=== PATIENT | female | born 1940 | race Caucasian/White ===

== ENCOUNTER → 2016-03-05 | Outpatient (CLI) | payer MEDICARE, OTHER ==
[~2016-03-05] MED LIST: ACIDOPHILUS PO; ALBUTEROL0.83 MG/ML IH; ASPIRIN 81M81 MG/TA2 PO; ATARAX 25MG25 MG/TAB PO; ATENOLOL25 MG PO; ATROVENT I0.2 MG/1 M IH; B COMPLEX1 TA2 PO; BUMEX 1MG TA1 MG/TA1 PO; BUMEX2 MG PO; CAL-600600 MG PO; CAL-MAG1 TAB PO; CALAN40 MG PO; CALCIUM & MAGNE1 CAP PO; CARDI-OMEGA1000 MG PO; CEPHALEXIN500 M1 PO; CLARITIN 1010 MG/TAB PO; CORDARONE200 MG/TAB PO; CYMBALTA 60MG60 MG PO; DESYREL 100MG100 MG PO; DESYREL 50MG50 MG; DESYREL 50MG50 MG PO; DETROL LA2 PO; DETROL LA4 PO; DOXYCYCLINE 10100 MG PO; ELAVIL50 MG PO; ESTRACE 1MG1 MG/TAB PO; ESTRIDIAL PO; FLONASE NASAL S16 GM NS; GABAPENTIN; HYDROCORTISO28.35 G1 TP; IBU600 MG PO; IMDUR 30MG30 MG/TAB PO; IMDUR 60MG60 MG/TAB PO; IMITREX50 MG PO; IPRATROPIUM BROM3 M1 IH; ISORDIL TITRADO30 MG PO; K-DUR 2020 MEQ PO; LASIX 40MG TABL40 MG PO; LASIX 80MG TABL80 MG PO; LEVAQUIN 5500 MG/TA1 PO; LEVOTHYROXINE0.1 MG PO; LEVOXYL0.112 MG PO; LEVOXYL0.125 MG PO; LIPITOR20 MG PO; LYRICA 100MG C100 M1 PO; LYRICA 150MG C150 MG PO; LYRICA 25MG CAP25 MG PO; LYRICA 75MG CAP75 MG PO; LYRICA100 MG PO; MAG-OX 400400 MG/TAB PO; MONODOX100 PO; MULTIPLE VITAMI PO; MULTIPLE VITAMI1 CAP PO; MULTIVITAMIN W/1 TA1 PO; MYRBETR25MG PO; MYRBETR50MG PO; NASONEX SPRAY17 GM NS; NATURAL E400 IU PO; NATURAL TEARS OU; NATURE'S B5000 IU/ML PO; NITROQUICK0.4 MG SL; NITROSTAT0.4 MG/TAB SL; NORCO 325 MG-51 TAB PO; NORVASC 5MG5 MG/TAB PO; PACERONE200 MG PO; PLAQUENIL 200M200 MG PO; PLAVIX 75MG TAB75 MG PO; PRADAXA 150MG150 MG PO; PRAVACHOL 20MG20 MG PO; PREDNISONE20 MG PO; PRINIVIL10 MG PO; PRINIVIL20 MG PO; PROAIR HFA0.09 MG/AC IH; PROBIOTIC FORMU1 CAP PO; PROVENTIL0.09 MG/A1 INH; SEPTRA DS 8001 TAB PO; SSKI1 GM/ML PO; SYNTHROID0.1 MG/TAB PO; TENORMIN 5050 MG/TAB PO; TETRACYCLINE500 MG; THERAGRAN1 TAB PO; THERATEARS 15 M15 ML OP; TOPROL XL 25MG25 MG PO; TOPROL XL 50MG50 MG PO; TYLENOL W/COD1 UDTAB PO; ULTRAM 50MG TAB50 MG PO; VANCOCIN H125 MG/CAP PO; VERAPAMIL 440 MG/TAB PO; VERELAN240 MG PO; VITAMIN B COMPL1 T16 PO; VITAMIN C PUR1000 MG PO; VITAMIN C500 MG PO; VITAMIN D 400400 IU PO; VITAMIN D31000 IU PO; VITAMIN D3400 I1 PO; VITAMIN D3400 IU PO; VITAMINC500CH PO; ZESTRIL 10MG10 MG PO; ZESTRIL 20MG TA20 MG PO; ZOCOR 20MG20 MG PO; ZOFRAN 4MG T4 MG/TAB PO; ZYLOPRIM 300MG300 MG PO; [UNRECOGNIZED DRUG - CODE] PO; [UNRECOGNIZED DRUG - OTHER] PO
== END ==
LOC: COL.RAD 03-04 11:00
DX: M19.012 Primary osteoarthritis, left shoulder (principal); M24.012 Loose body in left shoulder; M25.512 Pain in left shoulder

== ENCOUNTER 2016-12-10 00:51 | Emergency (ER) | payer MEDICARE, OTHER ==
[~2016-12-10] VITALS: Ht 152.4 cm; Wt 96.4 kg
[2016-12-10 00:55] VITALS: TEMP 97.8
[2016-12-10] MEDS ORDERED: OS-CAL 500 + D1 TAB (01:57)
[2016-12-10] MEDS ORDERED: OMEGA-3 1000 MG1 CAP PO (01:59)
[2016-12-10] MEDS ORDERED: MELATIN 3 MG-11 TAB PO (02:00)
[2016-12-10] MEDS ORDERED: CLARITIN 1010 MG/TAB PO (02:00)
[2016-12-10] MEDS ORDERED: CYMBALTA 60MG60 MG PO (02:02)
[2016-12-10 02:23] VITALS: BP 172/70; PULSE 64
== END 2016-12-10 02:23 | disposition home or self-care (01) ==
LOC: COL.ER 00:51
DX: S01.01XA Laceration without foreign body of scalp, initial encounter (principal); I27.20 Pulmonary hypertension, unspecified; J44.9 Chronic obstructive pulmonary disease, unspecified; I48.91 Unspecified atrial fibrillation; I25.10 Atherosclerotic heart disease of native coronary artery without angina pectoris; Z79.82 Long term (current) use of aspirin; W18.39XA Other fall on same level, initial encounter; W22.09XA Striking against other stationary object, initial encounter; Y92.009 Unspecified place in unspecified non-institutional (private) residence as the place of occurrence of the external cause

== ENCOUNTER → 2017-02-23 | Outpatient (REF) ==
[~2017-02-23] MED LIST changes: +ADVIL200 MG PO; +COREG 3.123.125 MG/T PO; +LOTRISONE CREAM15 GM TP; +MELATIN 3 MG-11 TAB PO; +MIRALAX PA17 GM/Dose PO; +OMEGA-3 1000 MG1 CAP PO; +OS-CAL 500 + D1 TAB PO; +ROXICODONE 55 MG/TAB PO; +TYLENOL 325MG325 MG PO; +VENTOLIN0.09 MG IH; +VITAMIND3 5000 PO; +ZOFRAN ODT8 MG PO
[2017-02-23 04:22] LABS: COLLECTION METHOD CLEAN CATCH
[2017-02-23 04:43] LABS: PH 7 (5-8); URINE APPEARANCE Turbid; URINE BACTERIA Rare /hpf; URINE BILIRUBIN Negative (NEGATIVE); URINE BLOOD 1+ (NEGATIVE); URINE COLOR Yellow; URINE GLUCOSE Negative (NEGATIVE); URINE KETONE Negative (NEGATIVE); URINE LEUKOCYTE ESTERASE 3+ (NEGATIVE); URINE NITRATE Negative (NEGATIVE); URINE PROTEIN(semi-quant) 1+ (NEGATIVE); URINE UROBILINOGEN Negative (NEGATIVE); URINE WBC >50 /hpf
== END ==
LOC: ZCOL.LAB 04:20
PROVIDERS: Internal Medicine
DX: Z01.89 Encounter for other specified special examinations (principal)

== ENCOUNTER → 2017-03-14 | Outpatient (REF) | LOC: ZLAB.WCH 12:58 | DX: Z01.89 Encounter for other specified special examinations (principal) ==

== ENCOUNTER → 2017-03-14 | Outpatient (REF) ==
[2017-03-14 13:10] LABS: BASO # 0.1 (0.0-0.2); BASO % 0.7 % (0.0-2.0); EOS # 0.3 (0.0-0.7); EOS % 4.1 % (0-4.0); GRAN # 3.9 (1.4-6.5); GRAN % 56.9 % (42.2-75.2); HEMATOCRIT 37.4 % (37.0-47.0); LYMPH # 1.8 (1.2-3.4); LYMPH % 26.9 % (20.0-51.0); MEAN CELL VOLUME 100 fl (80.0-100.0); MEAN CORPUSCULAR HEMOGLOBIN 32 pg (27.0-31.0); MEAN CORPUSCULAR HGB CONC 32 g/dl (33.0-37.0); MEAN PLATELET VOLUME 11.3 fl (7.4-10.4); MONO # 0.8 (0.1-0.6); PLATELET COUNT 191 K/mm3 (130-400); RED BLOOD COUNT 3.75 M/mm3 (4.10-5.30)
[2017-03-14 13:11] LABS: HEMOGLOBIN 11.9 g/dl (12.5-16.0)
[2017-03-14 13:18] LABS: ALBUMIN 3.8 gm/dL (3.5-5.0); BILIRUBIN,TOTAL 0.5 mg/dL (0.0-1.0); CALCIUM 9.8 mg/dL (8.4-10.2); CREATININE, serum 1.45 mg/dL (0.52-1.25); POTASSIUM 3.8 mmol/L (3.4-5.0); TOTAL PROTEIN 6.1 gm/dL (6.4-8.2)
== END ==
LOC: ZCOL.LAB 13:08
PROVIDERS: Nurse Practitioner Family
DX: N18.3 Chronic kidney disease, stage 3 (moderate) (principal); N39.0 Urinary tract infection, site not specified

== ENCOUNTER → 2017-03-20 | Outpatient (REF) ==
[2017-03-20 10:24] LABS: CREATININE, serum 1.21 mg/dL (0.52-1.25)
== END ==
LOC: ZCOL.LAB 09:53
PROVIDERS: Internal Medicine
DX: Z01.89 Encounter for other specified special examinations (principal)

== ENCOUNTER → 2017-03-23 | Outpatient (REF) ==
[2017-03-23 09:13] LABS: CREATININE, serum 1.2 mg/dL (0.52-1.25); POTASSIUM 3.1 mmol/L (3.4-5.0)
== END ==
LOC: ZCOL.LAB 08:28
PROVIDERS: Internal Medicine
DX: N39.0 Urinary tract infection, site not specified (principal)

== ENCOUNTER → 2017-03-26 | Outpatient (REF) ==
[2017-03-26 11:32] LABS: CALCIUM 10.4 mg/dL (8.4-10.2); CREATININE, serum 1.48 mg/dL (0.52-1.25); POTASSIUM 3.8 mmol/L (3.4-5.0)
== END ==
LOC: ZCOL.LAB 11:07
PROVIDERS: Internal Medicine
DX: N18.3 Chronic kidney disease, stage 3 (moderate) (principal)

== ENCOUNTER → 2017-04-27 | Outpatient (REF) ==
[2017-04-27 12:25] LABS: BASO # 0.1 (0.0-0.2); BASO % 0.6 % (0.0-2.0); EOS # 0.2 (0.0-0.7); EOS % 1.5 % (0-4.0); GRAN # 6.7 (1.4-6.5); GRAN % 65.3 % (42.2-75.2); HEMATOCRIT 40.3 % (37.0-47.0); HEMOGLOBIN 13.1 g/dl (12.5-16.0); LYMPH # 2.4 (1.2-3.4); LYMPH % 22.9 % (20.0-51.0); MEAN CELL VOLUME 97 fl (80.0-100.0); MEAN CORPUSCULAR HEMOGLOBIN 32 pg (27.0-31.0); MEAN CORPUSCULAR HGB CONC 33 g/dl (33.0-37.0); MEAN PLATELET VOLUME 11.3 fl (7.4-10.4); MONO # 0.9 (0.1-0.6); MONO % 8.5 % (1.7-9.3); PLATELET COUNT 200 K/mm3 (130-400); RED BLOOD COUNT 4.14 M/mm3 (4.10-5.30)
[2017-04-27 12:52] LABS: CALCIUM 9.8 mg/dL (8.4-10.2); CREATININE, serum 1.56 mg/dL (0.52-1.25); POTASSIUM 4.7 mmol/L (3.4-5.0)
== END ==
LOC: ZCOL.LAB 12:20
PROVIDERS: Internal Medicine
DX: N18.3 Chronic kidney disease, stage 3 (moderate) (principal); E87.6 Hypokalemia

== ENCOUNTER 2017-06-05 13:56 | Emergency (ER) | payer MEDICARE, OTHER ==
[~2017-06-05] VITALS: Ht 152.4 cm; Wt 90.9 kg
[2017-06-05 16:00] VITALS: BP 119/58; PULSE 68; TEMP 98
== END 2017-06-05 16:12 | disposition home or self-care (01) ==
LOC: COL.ER 13:56
DX: S41.111A Laceration without foreign body of right upper arm, initial encounter (principal); Z23 Encounter for immunization; F32.9 Major depressive disorder, single episode, unspecified; I10 Essential (primary) hypertension; W18.39XA Other fall on same level, initial encounter; W22.8XXA Striking against or struck by other objects, initial encounter; Z79.82 Long term (current) use of aspirin

== ENCOUNTER → 2017-06-11 | Outpatient (CLI) | payer MEDICARE, OTHER ==
[2017-06-11 13:21] LABS: BASO % 0.2 % (0.0-2.0); EOS # 0.1 (0.0-0.7); EOS % 0.7 % (0-4.0); GRAN # 11.6 (1.4-6.5); GRAN % 78.4 % (42.2-75.2); LYMPH # 1.5 (1.2-3.4); LYMPH % 10.3 % (20.0-51.0); MEAN CELL VOLUME 93 fl (80.0-100.0); MEAN CORPUSCULAR HEMOGLOBIN 31 pg (27.0-31.0); MEAN CORPUSCULAR HGB CONC 33 g/dl (33.0-37.0); MEAN PLATELET VOLUME 12.3 fl (7.4-10.4); MONO # 1.4 (0.1-0.6); MONO % 9.3 % (1.7-9.3); PLATELET COUNT 144 K/mm3 (130-400); RED BLOOD COUNT 4.52 M/mm3 (4.10-5.30); REDCELL DISTRIBUTION WIDTH-CV 15.9 % (11.5-14.5)
[2017-06-11 13:54] LABS: BILIRUBIN,TOTAL 0.6 mg/dL (0.0-1.0); CALCIUM 9.7 mg/dL (8.4-10.2); CREATININE, serum 2.12 mg/dL (0.52-1.25); POTASSIUM 3.4 mmol/L (3.4-5.0); TOTAL PROTEIN 5.5 gm/dL (6.4-8.2)
== END ==
LOC: ZCOL.LAB 13:14
PROVIDERS: Internal Medicine
DX: N18.3 Chronic kidney disease, stage 3 (moderate) (principal); N39.0 Urinary tract infection, site not specified; R19.7 Diarrhea, unspecified

== ENCOUNTER → 2017-06-15 | Outpatient (CLI) | payer MEDICARE, OTHER ==
[2017-06-15 15:34] LABS: HEMATOCRIT 41.4 % (37.0-47.0); HEMOGLOBIN 13.7 g/dl (12.5-16.0); MEAN CELL VOLUME 94 fl (80.0-100.0); MEAN CORPUSCULAR HEMOGLOBIN 31 pg (27.0-31.0); MEAN CORPUSCULAR HGB CONC 33 g/dl (33.0-37.0); MEAN PLATELET VOLUME 12.6 fl (7.4-10.4); PLATELET COUNT 118 K/mm3 (130-400); RED BLOOD COUNT 4.42 M/mm3 (4.10-5.30); REDCELL DISTRIBUTION WIDTH-CV 15.9 % (11.5-14.5)
[2017-06-15 15:55] LABS: CALCIUM 9.6 mg/dL (8.4-10.2); CREATININE, serum 1.78 mg/dL (0.52-1.25)
[2017-06-15 15:57] LABS: BAND 7 % (0-10); LYMPHOCYTE 20 % (20.0-51.0); NEUTROPHILS 73 % (42.0-75.2); NUCLEATED RED BLOOD CELL 1 (0-6); PLATELET ESTIMATE DECREASED (NORMAL)
== END ==
LOC: ZCOL.LAB 15:29
PROVIDERS: Internal Medicine
DX: N18.3 Chronic kidney disease, stage 3 (moderate) (principal); N39.0 Urinary tract infection, site not specified

== ENCOUNTER → 2017-06-18 | Outpatient (REF) ==
[2017-06-18 14:17] LABS: COLLECTION METHOD CLEAN CATCH
[2017-06-18 14:32] LABS: PH 5 (5-8); URINE APPEARANCE Clear; URINE BACTERIA None Seen /hpf; URINE BILIRUBIN Negative (NEGATIVE); URINE BLOOD 2+ (NEGATIVE); URINE COLOR Straw; URINE GLUCOSE Negative (NEGATIVE); URINE KETONE Negative (NEGATIVE); URINE LEUKOCYTE ESTERASE Negative (NEGATIVE); URINE NITRATE Negative (NEGATIVE); URINE PROTEIN(semi-quant) Negative (NEGATIVE); URINE RBC 0-2 /hpf; URINE UROBILINOGEN Negative (NEGATIVE); URINE WBC 0-2 /hpf
== END ==
LOC: ZCOL.LAB 14:15
PROVIDERS: Internal Medicine
DX: N39.0 Urinary tract infection, site not specified (principal); R41.82 Altered mental status, unspecified

== ENCOUNTER 2017-07-18 20:12 | Emergency (ER) | payer MEDICARE, OTHER ==
[2017-07-18 20:17] VITALS: TEMP 98.1
[2017-07-18 20:46] LABS: BASO # 0.1 (0.0-0.2); BASO % 0.4 % (0.0-2.0); EOS % 0.1 % (0-4.0); GRAN # 14.5 (1.4-6.5); GRAN % 82.3 % (42.2-75.2); HEMATOCRIT 48.2 % (37.0-47.0); LYMPH # 2.2 (1.2-3.4); LYMPH % 12.7 % (20.0-51.0); MEAN CELL VOLUME 95 fl (80.0-100.0); MEAN CORPUSCULAR HEMOGLOBIN 32 pg (27.0-31.0); MEAN CORPUSCULAR HGB CONC 33 g/dl (33.0-37.0); MEAN PLATELET VOLUME 11.8 fl (7.4-10.4); MONO # 0.6 (0.1-0.6); MONO % 3.5 % (1.7-9.3); PLATELET COUNT 171 K/mm3 (130-400); RED BLOOD COUNT 5.06 M/mm3 (4.10-5.30); REDCELL DISTRIBUTION WIDTH-CV 15.9 % (11.5-14.5)
[2017-07-18 20:51] LABS: INR 1.2 (0.8-3.0); PROTHROMBIN TIME 13.5 SECONDS (9.7-12.8)
[2017-07-18 20:56] LABS: ALBUMIN 3.9 gm/dL (3.5-5.0); BILIRUBIN,TOTAL 1.4 mg/dL (0.0-1.0); CALCIUM 10.6 mg/dL (8.4-10.2); CREATININE, serum 3.17 mg/dL (0.52-1.25); POTASSIUM 4.2 mmol/L (3.4-5.0); TOTAL PROTEIN 7.3 gm/dL (6.4-8.2)
[2017-07-18 21:07] LABS: ARTERIAL BLD GAS O2 SATURATION 98.8 % (92-100); ARTERIAL BLD GAS TCO2 CT 16.2; ARTERIAL BLOOD GAS BASE EXCESS -7.6 (-2-2); ARTERIAL BLOOD GAS HCO3 15.4 meq/L (22-26); ARTERIAL BLOOD GAS PCO2 25.3 mmHg (35-45)
[2017-07-18 21:08] LABS: ARTERIAL BLOOD GAS PO2 201.6 mmHg (80-100)
[2017-07-18] MEDS ORDERED: ZAROXOLYN5 MG PO (21:12)
[2017-07-18 21:14] LABS: PROLACTIN 34.3 ng/mL (3.0-18.6)
[2017-07-18] MEDS ORDERED: K-DUR20 MEQ PO (21:16)
[2017-07-18] MEDS ORDERED: LYRICA 150MG C150 MG PO (21:20)
[2017-07-18 23:39] VITALS: BP 86/97; PULSE 65
== END 2017-07-18 23:09 | disposition short-term general hospital (02) ==
LOC: COL.ER 20:12
PROVIDERS: Emergency Medicine
DX: A41.9 Sepsis, unspecified organism (principal); R65.20 Severe sepsis without septic shock; I50.9 Heart failure, unspecified; I63.9 Cerebral infarction, unspecified; I10 Essential (primary) hypertension; E86.0 Dehydration; E87.1 Hypo-osmolality and hyponatremia; E03.9 Hypothyroidism, unspecified; I48.91 Unspecified atrial fibrillation; Z95.0 Presence of cardiac pacemaker; Z90.49 Acquired absence of other specified parts of digestive tract; Z90.89 Acquired absence of other organs; Z79.82 Long term (current) use of aspirin; Z79.51 Long term (current) use of inhaled steroids
CPT/HCPCS: J2543; J3370; J7030; J7050